=== PATIENT | male | born 1985 | race Two or more races ===

== ENCOUNTER 2019-09-28 00:38 | Emergency (ER) | payer MEDICAID ==
[~2019-09-28] VITALS: Ht 167.6 cm; Wt 72.3 kg
--- NOTE | 2019-09-28 01:18 | NUR ---
PT SITTING UP IN BED LAUGHING FOR UNK REASONS.
[2019-09-28] MEDS ORDERED: NALO4SPR BOTHNARES (01:19)
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
[2019-09-28] MEDS ORDERED: LIDOcaine 1% 30ml preserv. free vial IJ ONE (02:35)
[2019-09-28 03:32] VITALS: BP 124/70
== END 2019-09-28 04:14 | disposition home or self-care (01) ==
LOC: ER 00:38
DX: S61.213A Laceration without foreign body of left middle finger without damage to nail, initial encounter (principal); T40.1X1A Poisoning by heroin, accidental (unintentional), initial encounter; F12.920 Cannabis use, unspecified with intoxication, uncomplicated; Z72.89 Other problems related to lifestyle; Z59.0 Homelessness; Z79.899 Other long term (current) drug therapy; X58.XXXA Exposure to other specified factors, initial encounter; Y93.89 Activity, other specified; Y92.89 Other specified places as the place of occurrence of the external cause; Y99.8 Other external cause status
CPT/HCPCS: 12001; 99283

== ENCOUNTER 2020-08-13 17:48 | Emergency (ER) | payer MEDICAID ==
[~2020-08-13] VITALS: Ht 167.6 cm; Wt 72.7 kg
[~2020-08-13 17:48] MED LIST: NALO4SPR BOTHNARES
[2020-08-13] MEDS ORDERED: predniSONE 20 mg tablet PO ONE (18:20)
[2020-08-13] MEDS ORDERED: NAPR-56 PO (18:23)
[2020-08-13] MEDS ORDERED: PRED20TA PO (18:23)
[2020-08-13] MEDS ORDERED: FLUT16SP2 BOTHNARES (18:23)
[2020-08-13] MEDS ORDERED: AMOX-422 PO (18:23)
[2020-08-13] MEDS ORDERED: ALBU6.7H9 INH (18:26)
[2020-08-13 19:22] VITALS: BP 134/74
== END 2020-08-13 19:23 | disposition home or self-care (01) ==
LOC: ER 17:49
DX: J32.9 Chronic sinusitis, unspecified (principal); Z20.822 Contact with and (suspected) exposure to COVID-19; F12.90 Cannabis use, unspecified, uncomplicated; F11.90 Opioid use, unspecified, uncomplicated; Z59.0 Homelessness; Z79.899 Other long term (current) drug therapy
CPT/HCPCS: 87635; 99283; C9803; J7512

== ENCOUNTER 2021-03-25 23:05 | Inpatient (IN) | payer MEDICAID ==
[~2021-03-25] VITALS: Ht 167.6 cm; Wt 75.0 kg
[~2021-03-25 23:05] MED LIST changes: +ALBU6.7H9 INH; +FLUT16SP2 BOTHNARES
[2021-03-25] MEDS ORDERED: piperacillin/tazo 4.5gm/100ml 100 ML IV SCH (23:15)
[2021-03-25] MEDS ORDERED: CLINDAMYCIN/D5W 900mg/50ml 50 ML IV ONE (23:15)
[2021-03-25] MEDS ORDERED: vancomycin/NS 1 GM ADD-VANTAGE 250 ML IV ONE (23:15)
[2021-03-25] MEDS ORDERED: normal saline 1000ml 1,000 ML IV ONE (23:15)
[2021-03-25 23:47] LABS: BASOPHILS % (AUTO) 0.1 % (0-1); EOSINOPHILS % (AUTO) 0 % (0-6); HEMOGLOBIN 10.7 g/dl (14.0-17.9); MEAN CORPUSCULAR HGB CONC 32.4 g/dL (33.0-36.5); MONOCYTES # (AUTO) 1.8 X10'3 (0-0.9); MONOCYTES % (AUTO) 5.3 % (2-12); RED BLOOD COUNT 4.33 X10'6 (4.70-6.10); RED CELL DISTRIBUTION WIDTH 15.1 % (11.5-14.5)
[2021-03-25 23:48] LABS: LYMPHOCYTES # (AUTO) 0.8 X10'3 (1.1-4.8); LYMPHOCYTES % (AUTO) 2.3 % (21-51); MEAN CORPUSCULAR HEMOGLOBIN 24.7 PG (27.0-31.0); MEAN CORPUSCULAR VOLUME 76.2 FL (78-98); MEAN PLATELET VOLUME 7.7 FL (7.4-10.4); NEUTROPHILS % (AUTO) 92.3 % (42-75); PLATELET COUNT 282 X10'3 (140-440)
[2021-03-25 23:54] LABS: WHITE BLOOD COUNT 33.5 X10'3 (4.5-11.0)
[2021-03-25 23:55] LABS: ALBUMIN 2.8 G/DL (3.4-5.0); ANION GAP 9 (8-16); BLOOD UREA NITROGEN 18 MG/DL (7-18); BUN/CREATININE RATIO 15.4 (5.4-32.0); CALCIUM 8.4 MG/DL (8.5-10.1); CHLORIDE 98 MMOL/L (99-107); CREATININE 1.17 MG/DL (0.60-1.10); GLUCOSE 124 MG/DL (70-104); POTASSIUM 3.5 MMOL/L (3.5-5.1); SODIUM 134 MMOL/L (135-145); eGFR 71 ML/MIN
[2021-03-25 23:57] LABS: PARTIAL THROMBOPLASTIN TIME 31 SECONDS (22-32)
[2021-03-26] MEDS ORDERED: TETanus/Pertussis (Acell)/Diphther VAC/PF (Tdap-Adult) 0.5ml syringe IMVAC ONE (00:15)
[2021-03-26 00:27] LABS: PLATELET ESTIMATE NORMAL; TOTAL CELLS COUNTED 100
[2021-03-26 00:29] LABS: TOXIC VACUOLATION FEW
[2021-03-26] MEDS ORDERED: potassium Cl 40MEQ/1/2NS 520ml 520 ML IV PRN ×2 (00:30)
[2021-03-26] MEDS ORDERED: morphine 2 MG/ML inj. syringe IV PRN ×2 (00:30→02:05)
[2021-03-26] MEDS ORDERED: acetaminophen 325mg tablet PO PRN ×2 (00:30→10:50)
[2021-03-26] MEDS ORDERED: magnesium 2GM in 50ml NS 50 ML IV PRN (00:30)
[2021-03-26] MEDS ORDERED: potassium Cl 20 mEq SR tablet PO PRN ×2 (00:30)
[2021-03-26] MEDS ORDERED: ondansetron/PF 4mg/2ml inj IV PRN ×2 (00:30→02:05)
[2021-03-26] MEDS ORDERED: magnesium Cl slow-release 64mg tablet PO PRN (00:30)
[2021-03-26] MEDS ORDERED: magnesium 4gm in 100ml NS 100 ML IV PRN (00:30)
[2021-03-26] MEDS: normal saline 1000ml 1,000 ML IV SCH ×2 (00:39→12:16)
[2021-03-26 01:18] LABS: URINE AMPHETAMINE SCREEN POSITIVE (Neg); URINE BARBITUATE SCREEN NEGATIVE (Neg); URINE BENZODIAZEPINES SCREEN NEGATIVE (Neg); URINE CANNABINOID SCREEN POSITIVE (Neg); URINE COCAINE SCREEN NEGATIVE (Neg); URINE METHADONE SCREEN NEGATIVE (Neg); URINE OPIATE SCREEN POSITIVE (Neg); URINE PHENCYCLIDINE SCREEN NEGATIVE (Neg)
[2021-03-26] MEDS ORDERED: morphine 4 MG/ML inj SYRINge IV PRN (02:05)
[2021-03-26] MEDS ORDERED: proCHLORperazine 10 MG/2 ml inj IV PRN (02:05)
[2021-03-26] MEDS ORDERED: meperidine/PF 25mg/ml syringe IV PRN ×3 (02:05)
[2021-03-26] MEDS ORDERED: ringers solution, lacted 1,000 ML IV SCH (02:05)
[2021-03-26] MEDS ORDERED: propofol inj 20 ML IV ONE (02:16)
[2021-03-26] MEDS ORDERED: fentaNYL/PF 50MCG/1 ML 2ML syringe ONE ×2 (02:16→02:40)
[2021-03-26 03:14] VITALS: BP 94/62
--- NOTE | 2021-03-26 03:14 | NUR ---
Received from OR via SURGICAL BED , accompanied by Anesthesiologist JUAN and report given by Anesthesiolgist. PATIENT WITH 18G PIV IN LEFT UE RUNNING LR AT 100. MEDICATED UPON ARRIVAL FOR PAIN. PATIENT WITH SPLINT TO RIGHT UE THAT EXTENDS FROM FINGERS TO ELBOW. NO DRAINAGE PRESENT. FINGERS EXPOSED WITH + CAP REFILL. Addendum: 03/26/21 at 0322 by Juan Marie RN, RN Amended: Links added.
[2021-03-26 03:20] VITALS: BP 97/67
[2021-03-26 03:30] VITALS: BP 101/64
--- NOTE | 2021-03-26 03:43 | NUR ---
PATIENT HAS MET ALL CRITERIA FOR TRANSFER TO THE SURGICAL FLOOR. VSS. DRESSINGS INTACT. BED LOW, CALL LIGHT PRESENT AND 2 RAILS UP. RN PRESENT TO ACCEPT CARE OF PATIENT AND REPORT HAS BEEN CALLED. ALL QUESTIONS ANSWERED TO ACCEPTING DIONNE BAILEY. RIGHT UE DRESSING CDI AND PATIENT SITTING UP TALKING. APOLOGETIC WITH NO REQUESTS AT THIS TIME. Addendum: 03/26/21 at 0346 by Juan Marie RN, RN Amended: Links added.
[2021-03-26 03:50] VITALS: BP 132/89
[2021-03-26] MEDS: HYDROmorphone inj. 0.5 MG/0.5 ML DISP.SYRIN IV PRN ×2 (04:05→10:45)
--- NOTE | 2021-03-26 07:06 | NUR ---
Patient in room [facility]. I have received report from DIONNE BAILEY and had the opportunity to ask questions and assume patient care.
[2021-03-26] MEDS ORDERED: NO HOME MEDS PO (07:57)
[2021-03-26] MEDS ORDERED: piperacillin/tazo 3.375gm/50ml 50 ML IV SCH (08:00)
[2021-03-26] MEDS ORDERED: K and/or MAG REPLACEMENT MC SCH (08:00)
[2021-03-26 09:00] VITALS: BP 130/76
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
[2021-03-26] MEDS ORDERED: LORazepam 0.5 MG tablet PO PRN (10:50)
[2021-03-26] MEDS ORDERED: HYDROcodone/acetaminophen 10/325mg tab PO PRN (10:50)
[2021-03-26] MEDS ORDERED: VANCOmycin 1250MG/NS 250ml Bag 250 ML IV SCH (11:00)
[2021-03-26 12:00] VITALS: BP 118/70
[2021-03-26] MEDS ORDERED: JUVEN Shake w/Arg/Glut/Ca2+Bmb (Juven 19.3gm) pkt 240ml PO SCH (12:30)
[2021-03-26] MEDS ORDERED: HYDROmorphone 1 mg/ml syringe IV PRN (13:50)
--- NOTE | 2021-03-26 14:00 | NUR ---
PATIENT LEFT AMA, PATIENT EDUCATED EXTENSIVELY BY THIS NURSE AND ANOTHER ABOUT THE RISKS OF LEAVING AGAINST DR'S ADVICE, PATIENT ALSO EDUCATED ON BENEFITS OF STAYING FOR TREATMENT. PATIENT EXPRESSED THEY UNDERSTOOD RISKS AND BENEFITS OF LEAVING AND DESIRE TO STILL LEAVE. DR PRICE. IV TAKEN OUT, ALL BELONGINGS SENT WITH PATIENT, PATIENT WALKED OUT BY SECURITY.
[2021-03-27] MEDS ORDERED: VANCOMYCIN LEVEL IV ONE (10:30)
== END 2021-03-26 14:19 | disposition left against medical advice (07) | DRG 710 ==
LOC: ER 23:06 → ED HOLD 03-26 00:28 → SUR 3N 03-26 03:50
PROVIDERS: ADMIT Internal Medicine; ATTEND Family Medicine
PROC: 0KNC0ZZ Release Right Hand Muscle, Open Approach (ICD-10-PCS; 2021-03-26)
PROC: 3E0234Z Introduction of Serum, Toxoid and Vaccine into Muscle, Percutaneous Approach (ICD-10-PCS; 2021-03-26)
PROC: 01N50ZZ Release Median Nerve, Open Approach (ICD-10-PCS; principal; 2021-03-26 02:16)
DX: A41.9 Sepsis, unspecified organism (principal); M72.6 Necrotizing fasciitis; N17.9 Acute kidney failure, unspecified; M79.A11 Nontraumatic compartment syndrome of right upper extremity; E87.1 Hypo-osmolality and hyponatremia; Z53.29 Procedure and treatment not carried out because of patient's decision for other reasons; F11.90 Opioid use, unspecified, uncomplicated; Z20.822 Contact with and (suspected) exposure to COVID-19; D64.9 Anemia, unspecified; F15.10 Other stimulant abuse, uncomplicated; L03.113 Cellulitis of right upper limb; F12.90 Cannabis use, unspecified, uncomplicated; R07.81 Pleurodynia; L02.511 Cutaneous abscess of right hand; T40.1X1A Poisoning by heroin, accidental (unintentional), initial encounter; Y92.89 Other specified places as the place of occurrence of the external cause; Z59.00 Homelessness unspecified; Z23 Encounter for immunization; Z79.899 Other long term (current) drug therapy
CPT/HCPCS: 36415; 73130; 80048; 80305; 83605; 85007; 85025; 85610; 85730; 87040; 87070; 87075; 87077; 87186; 87635; 90715; 96365; 96367; 99285; A4618; A6446; A6449; A7000; G0378; J1170; J2543; J2704; J3010; J3370; J3490; J7030

== ENCOUNTER 2023-09-02 22:27 | Emergency (ER) | payer MEDICAID ==
[~2023-09-02] VITALS: Ht 167.6 cm; Wt 68.2 kg
[~2023-09-02 22:27] MED LIST changes: -ALBU6.7H9 INH; -FLUT16SP2 BOTHNARES; -NALO4SPR BOTHNARES; +NO HOME MEDS PO
[2023-09-02] MEDS: normal saline 1000ml 1,000 ML IV ONE (23:22)
[2023-09-02 23:30] LABS: BASOPHILS # (AUTO) 0.1 X10'3 (0-0.2); BASOPHILS % (AUTO) 0.6 % (0-1); EOSINOPHILS # (AUTO) 0.3 X10'3 (0-0.9); HEMATOCRIT 28.8 % (42.0-52.0); HEMOGLOBIN 9.3 g/dl (14.0-17.9); LYMPHOCYTES % (AUTO) 21.1 % (21-51); MEAN CORPUSCULAR HEMOGLOBIN 23.8 PG (27.0-31.0); MEAN CORPUSCULAR HGB CONC 32.3 g/dL (33.0-36.5); MEAN CORPUSCULAR VOLUME 73.5 FL (78-98); MEAN PLATELET VOLUME 6.8 FL (7.4-10.4); MONOCYTES # (AUTO) 1.2 X10'3 (0-0.9); MONOCYTES % (AUTO) 12.4 % (2-12); NEUTROPHILS # (AUTO) 5.8 X10'3 (1.8-7.7); NEUTROPHILS % (AUTO) 62.9 % (42-75); PLATELET COUNT 356 X10'3 (140-440); RED BLOOD COUNT 3.92 X10'6 (4.70-6.10); RED CELL DISTRIBUTION WIDTH 14.5 % (11.5-14.5); WHITE BLOOD COUNT 9.3 X10'3 (4.5-11.0)
[2023-09-02 23:38] LABS: ALANINE AMINOTRANSFERASE 30 U/L (12-78); ALBUMIN 2.2 G/DL (3.4-5.0); ALBUMIN/GLOBULIN RATIO 0.4 (1.1-1.5); ALKALINE PHOSPHATASE 73 IU/L (46-116); ANION GAP 8 (8-16); ASPARTATE AMINO TRANSFERASE 29 U/L (10-37); BILIRUBIN,TOTAL 0.2 MG/DL (0.1-1.0); BLOOD UREA NITROGEN 17 MG/DL (7-18); BUN/CREATININE RATIO 14.9 (10.0-20.0); CALCIUM 8.2 MG/DL (8.5-10.1); CHLORIDE 100 MMOL/L (99-107); CREATININE 1.14 MG/DL (0.60-1.10); GLUCOSE 149 MG/DL (70-104); MAGNESIUM 2.1 MG/DL (1.5-2.4); POTASSIUM 3.1 MMOL/L (3.5-5.1); SODIUM 138 MMOL/L (135-145); TOTAL CARBON DIOXIDE 30.3 MMOL/L (24-32); TOTAL PROTEIN 7.8 G/DL (6.4-8.2); eCRCL 80 ML/MIN; eGFR 72 ML/MIN
[2023-09-02] MEDS ORDERED: iohexol 300mg/ml 100ml inj. ONE (23:54)
[2023-09-03] MEDS: metroNIDAZOLE-Flagyl 500mg/NS 100 ML IV ONE (00:25)
[2023-09-03] MEDS: cefepime 1GM/NS ADD-VANTAGE 100 ML IV ONE (01:23)
[2023-09-03] MEDS: vancomycin/NS 1 GM ADD-VANTAGE 250 ML IV ONE (01:37)
[2023-09-03] MEDS: POTASSIUM BICARB 20meq eff tab 20 MEQ TABLET.EFF PO ONE (02:35)
[2023-09-03 05:04] LABS: BILIRUBIN,URINE NEGATIVE (Neg); CLARITY,URINE CLEAR (Clear); COLOR,URINE YELLOW (Yellow); GLUCOSE, URINE NEGATIVE (Neg); KETONES,URINE NEGATIVE (Neg); LEUKOCYTE ESTERASE ,URINE NEGATIVE (Neg); NITRITES, URINE NEGATIVE (Neg); OCCULT BLOOD,URINE NEGATIVE (Neg); PROTEIN,URINE NEGATIVE (Neg); UROBILINOGEN,URINE 0.2 E.U/dL (0.2-1.0)
[2023-09-03 05:06] LABS: UA COLLECTION TYPE CLN CATCH MIDSTREAM
[2023-09-03 05:10] LABS: URINE AMPHETAMINE SCREEN POSITIVE (Neg); URINE BARBITUATE SCREEN NEGATIVE (Neg); URINE BENZODIAZEPINES SCREEN NEGATIVE (Neg); URINE CANNABINOID SCREEN NEGATIVE (Neg); URINE COCAINE SCREEN NEGATIVE (Neg); URINE METHADONE SCREEN NEGATIVE (Neg); URINE OPIATE SCREEN NEGATIVE (Neg); URINE PHENCYCLIDINE SCREEN NEGATIVE (Neg)
[2023-09-03] MEDS ORDERED: ketorolac trometh. 30mg/ml inj. IV ONE (05:45)
[2023-09-03] MEDS: ondansetron 4mg rapidly disintigrating tab PO ONE (05:49)
[2023-09-03] MEDS: ketorolac tromethamine 15mg/ml inj. IV ONE (05:50)
[2023-09-03] MEDS: morphine 4 MG/ML inj SYRINge IV ONE (05:50)
[2023-09-03 06:39] VITALS: TEMP 98
[2023-09-03] MEDS: metroNIDAZOLE-Flagyl 500mg/NS 100ML IVPB IV SCH (10:42)
[2023-09-03] MEDS: buprenorphine/naloxone 8MG-2MG SUBlingual film SL STA (10:44)
[2023-09-03 10:45] VITALS: BP 113/67; PULSE 78; RESP 18; O2SAT 97
[2023-09-03] MEDS ORDERED: vancomycin/NS 1 GM ADD-VANTAGE 250 ML IV SCH (11:00)
[2023-09-03] MEDS ORDERED: cefepime 1GM/NS 100 ML IVPB IV SCH (11:00)
[2023-09-03] MEDS ORDERED: LEVO750T68 PO (11:03)
[2023-09-03] MEDS ORDERED: AMOX-117 PO (11:03)
== END 2023-09-03 11:13 | disposition left against medical advice (07) ==
LOC: ER 22:28
DX: H60.92 Unspecified otitis externa, left ear (principal); H83.02 Labyrinthitis, left ear; H70.92 Unspecified mastoiditis, left ear; F12.90 Cannabis use, unspecified, uncomplicated; F15.90 Other stimulant use, unspecified, uncomplicated; Z79.2 Long term (current) use of antibiotics; Z79.899 Other long term (current) drug therapy
CPT/HCPCS: 36415; 70481; 80053; 80305; 81003; 83735; 84145; 85025; 87040; 93005; 96361; 96365; 96366; 96375; 99285; J0692; J1885; J2270; J3370; J3490; J7030; Q9967